=== PATIENT | female | born 2000 | race Caucasian/White ===

== ENCOUNTER → 2025-09-06 08:43 | Outpatient (BNV) | payer OTHER, SELFPAY | PROVIDERS: Visit Provider Radiology Diagnostic Radiology | DX: R10.9 Unspecified abdominal pain (principal) | CPT/HCPCS: 76700 ==

== ENCOUNTER 2025-09-06 08:50 | Outpatient (REF) | payer OTHER, SELFPAY ==
--- NOTE | ~2025-09-06 | US_ITS ---
EXAMINATION: US ABDOMEN HISTORY: ABD PAIN TECHNIQUE: Real-time grayscale ultrasound imaging of the abdomen was performed and images were reviewed. COMPARISON: There are no prior studies available for comparison. FINDINGS: Liver: The right lobe of the liver measures 13.1 cm in size. The left lobe of the liver measures 8.3 cm in size. The liver demonstrates normal homogeneous echotexture. No focal mass or intrahepatic biliary ductal dilatation is identified. There is normal hepatopedal flow in the portal vein. Gallbladder and biliary tree: The gallbladder is unremarkable, without evidence of calculi, wall thickening, or pericholecystic fluid. There is no sonographic Barnard sign. The common bile duct is normal in caliber measuring 2 mm. Kidneys: The right kidney measures 11.3 cm in length. The left kidney measures 11.0 cm in length. The kidneys are unremarkable, without evidence of masses, hydronephrosis, or calculi. Pancreas: The pancreatic head, neck, and body are unremarkable. The pancreatic tail is obscured by bowel gas. Spleen: The spleen is normal in size and contour, measuring 10.0 cm in length. Abdominal aorta and inferior vena cava: The visualized portions of the abdominal aorta and inferior vena cava are normal in caliber. There is no free fluid in the abdomen. US/US abdomen complete IMPRESSION: Unremarkable abdominal ultrasound. Electronically signed by: Abdirashid Spring MD 09/06/2025 09:30 AM [email or web address]
== END 2025-09-06 08:51 | disposition home or self-care (01) ==
LOC: HO.UMASIMG 08:50
PROVIDERS: Visit Provider Family Medicine
DX: R10.9 Unspecified abdominal pain (principal)
CPT/HCPCS: 76700